=== PATIENT | female | born 1945 | race Caucasian/White ===

== ENCOUNTER 2017-12-27 12:44 | Day surgery (SDC) | payer MEDICARE, BC ==
[2017-12-27] MEDS ORDERED: DEXAMETHASONE SOD PHOS PF 10 MG/ML SOL IJ ONE (13:40)
[2017-12-27] MEDS ORDERED: BUPIVACAINE HCL 0.25% MPF 30 ML SOL INFIL ONE (13:41)
[2017-12-27 14:01] VITALS: BP 130/60; PULSE 97; RESP 16; TEMP 97.7; O2SAT 96
== END 2017-12-27 14:45 | disposition home or self-care (01) | DRG 552 ==
LOC: SURG 12:44
PROVIDERS: ATTEND Nurse Anesthetist, Certified Registered
DX: M51.17 Intervertebral disc disorders with radiculopathy, lumbosacral region (principal)
CPT/HCPCS: J1100

== ENCOUNTER 2018-02-01 12:45 | Day surgery (SDC) | payer MEDICARE, BC ==
[2018-02-01] MEDS ORDERED: DEXAMETHASONE SOD PHOS PF 10 MG/ML SOL IJ ONE (13:39)
[2018-02-01 14:11] VITALS: BP 120/61; PULSE 78; RESP 16; TEMP 97.6; O2SAT 94
== END 2018-02-01 14:39 | disposition home or self-care (01) | DRG 552 ==
LOC: SURG 12:45
PROVIDERS: ATTEND Nurse Anesthetist, Certified Registered
DX: M51.17 Intervertebral disc disorders with radiculopathy, lumbosacral region (principal)
CPT/HCPCS: J1100

== ENCOUNTER 2018-08-09 09:20 | Day surgery (SDC) | payer MEDICARE, BC ==
[2018-08-09] MEDS ORDERED: BUPIVACAINE HCL 0.25% MPF 30 ML SOL INFIL ONE (10:00)
[2018-08-09] MEDS ORDERED: DEXAMETHASONE SOD PHOS PF 10 MG/ML SOL IJ ONE (10:01)
[2018-08-09 10:26] VITALS: BP 144/89; PULSE 71; RESP 16; TEMP 99; O2SAT 95
== END 2018-08-09 10:38 | disposition home or self-care (01) | DRG 552 ==
LOC: SURG 09:20
PROVIDERS: ATTEND Nurse Anesthetist, Certified Registered
DX: M51.17 Intervertebral disc disorders with radiculopathy, lumbosacral region (principal)
CPT/HCPCS: J1100

== ENCOUNTER → 2018-11-16 | Day surgery (SDC) | payer MEDICARE, BC ==
[~2018-11-16] MED LIST: BUPIVACAINE HCL 0.25% MPF 30 ML SOL INFIL ONE; DEXAMETHASONE SOD PHOS PF 10 MG/ML SOL IJ ONE
[2018-11-16 13:15] VITALS: RESP 16
[2018-11-16 14:42] VITALS: BP 135/86; PULSE 67; TEMP 98.4; O2SAT 96
== END | disposition home or self-care (01) | DRG 552 ==
LOC: SURG 12:39
PROVIDERS: ATTEND Nurse Anesthetist, Certified Registered
DX: M51.17 Intervertebral disc disorders with radiculopathy, lumbosacral region (principal); M48.061 Spinal stenosis, lumbar region without neurogenic claudication
CPT/HCPCS: J1100